=== PATIENT | female | born 2000 | race Caucasian/White ===

== ENCOUNTER 2023-04-17 16:47 | Emergency (ER) | payer MEDICAID, OTHER ==
[~2023-04-17] VITALS: Ht 152.4 cm; Wt 105.0 kg
[2023-04-17 17:00] VITALS: O2SAT 99
[2023-04-17] MEDS ORDERED: CEPH500C2 MT (17:58)
[2023-04-17] MEDS ORDERED: TOPUD MT (17:58)
[2023-04-17] MEDS ORDERED: ACETAMINOPHEN 325MG TABLET PO ONE (18:00)
[2023-04-17 18:54] VITALS: BP 135/85; PULSE 85; RESP 16; TEMP 98.7
== END 2023-04-17 18:55 | disposition home or self-care (01) ==
LOC: ER 16:47
DX: L60.0 Ingrowing nail (principal); I10 Essential (primary) hypertension; J45.909 Unspecified asthma, uncomplicated
CPT/HCPCS: 99283

== ENCOUNTER 2024-01-23 16:51 | Emergency (ER) | payer MEDICAID ==
[~2024-01-23] VITALS: Ht 165.1 cm; Wt 99.0 kg
[~2024-01-23 16:51] MED LIST: CEPH500C2 MT; TOPUD MT
[2024-01-23 17:00] VITALS: O2SAT 99
[2024-01-23 17:58] LABS: CLARITY URINE CLOUDY (CLEAR); COLOR URINE YELLOW (YELLOW); GLUCOSE URINE NEGATIVE (NEGATIVE); KETONES URINE NEGATIVE (NEGATIVE); LEUKOCYTE ESTERASE URINE TRACE (NEGATIVE); NITRITE URINE NEGATIVE (NEGATIVE); OCCULT BLOOD URINE NEGATIVE (NEGATIVE); PROTEIN URINE NEGATIVE (NEGATIVE); SPECIFIC GRAVITY URINE 1.025 (1.005-1.030)
[2024-01-23 18:03] LABS: UCG SCREEN NEGATIVE
[2024-01-23 18:22] LABS: BACTERIA URINE 1+; RBC URINE 0-2 /hpf (0-2); SQUAMOUS EPITHELIAL CELL URINE 2+ /lpf (RARE/1+)
[2024-01-23 19:10] LABS: BASOPHILS % 0.3 % (0.0-2.0); EOSINOPHILS % 3.5 % (0.0-5.0); HEMATOCRIT. 40.1 % (36.0-48.0); HEMOGLOBIN. 12.9 g/dL (12.0-16.0); LYMPHOCYTES % 30.9 % (20.0-50.0); MEAN CORPUSCULAR HEMOGLOBIN 26.4 pg (28.0-32.0); MEAN CORPUSCULAR HGB CONC 32.1 g/dL (31.0-37.0); MEAN CORPUSCULAR VOLUME 82.5 fL (81.0-99.0); MEAN PLATELET VOLUME 6.7 fl (7.4-10.4); NEUTROPHILS % 58.3 % (40.0-76.0); PLATELET 287 x1000/uL (130-400); RED BLOOD CELL COUNT 4.86 mill/uL (4.2-5.4); RED CELL DISTRIBUTION WIDTH 15.4 % (11.6-14.6); WHITE BLOOD COUNT 7.8 x1000/uL (4.5-11.0)
[2024-01-23 19:15] LABS: CHLORIDE 107 mEq/L (98-107); POTASSIUM 3.4 mEq/L (3.5-5.1); SODIUM 140 mEq/L (136-145)
[2024-01-23 19:16] LABS: CARBON DIOXIDE 27 mEq/L (21-32)
[2024-01-23 19:17] LABS: CALCIUM 9.2 mg/dL (8.7-10.4)
[2024-01-23 19:21] LABS: CREATININE 0.6 mg/dL (0.6-1.0); GLUCOSE 103 mg/dL (70-105)
[2024-01-23 19:22] LABS: UREA NITROGEN BLOOD 6 mg/dL (9-23)
[2024-01-23 19:23] LABS: ALANINE AMINOTRANSFERASE 35 IU/L (10-49); ALBUMIN 4.4 g/dL (3.2-4.8); ASPARTATE AMINOTRANSFERASE 28 IU/L (<34)
[2024-01-23 19:24] LABS: BILIRUBIN TOTAL 0.3 mg/dL (0.1-1.0); PROTEIN TOTAL 7.2 g/dL (6.0-8.3)
[2024-01-23] MEDS ORDERED: IBUP-2028 MT (20:38)
[2024-01-23] MEDS ORDERED: SULF1TAB48 MT (20:38)
[2024-01-23] MEDS: KETOROLAC 15MG/ML VIAL IM ONE (20:53)
[2024-01-23] MEDS: ACETAMINOPHEN 325MG TABLET PO ONE (20:53)
[2024-01-23 21:00] VITALS: BP 129/74; PULSE 79; RESP 20; TEMP 98.2
== END 2024-01-23 21:08 | disposition home or self-care (01) ==
LOC: ER 16:51
DX: R11.0 Nausea (principal); M54.50 Low back pain, unspecified; R10.30 Lower abdominal pain, unspecified; F41.9 Anxiety disorder, unspecified; J45.909 Unspecified asthma, uncomplicated; I10 Essential (primary) hypertension; R00.0 Tachycardia, unspecified
CPT/HCPCS: 99285; 76830; 76856; 80053; 81003; 81025; 83690; 85025; 87086; 36415; 96372; J1885

== ENCOUNTER 2024-01-26 14:04 | Emergency (ER) | payer MEDICAID ==
[~2024-01-26] VITALS: Ht 152.4 cm; Wt 100.0 kg
[~2024-01-26 14:04] MED LIST changes: +IBUP-2028 MT; +SULF1TAB48 MT
[2024-01-26 14:11] VITALS: TEMP 98.4; O2SAT 99
[2024-01-26 14:28] LABS: BASOPHILS % 0.4 % (0.0-2.0); EOSINOPHILS % 3.7 % (0.0-5.0); HEMATOCRIT. 40.4 % (36.0-48.0); HEMOGLOBIN. 13.2 g/dL (12.0-16.0); LYMPHOCYTES % 19.4 % (20.0-50.0); MEAN CORPUSCULAR HEMOGLOBIN 26.7 pg (28.0-32.0); MEAN CORPUSCULAR HGB CONC 32.6 g/dL (31.0-37.0); MEAN CORPUSCULAR VOLUME 82.1 fL (81.0-99.0); MEAN PLATELET VOLUME 6.5 fl (7.4-10.4); MONOCYTES % 6.1 % (2.0-8.0); NEUTROPHILS % 70.4 % (40.0-76.0); PLATELET 293 x1000/uL (130-400); RED BLOOD CELL COUNT 4.92 mill/uL (4.2-5.4); RED CELL DISTRIBUTION WIDTH 15.5 % (11.6-14.6); WHITE BLOOD COUNT 10.1 x1000/uL (4.5-11.0)
[2024-01-26 14:37] LABS: CARBON DIOXIDE 24 mEq/L (21-32); CHLORIDE 107 mEq/L (98-107); POTASSIUM 4.1 mEq/L (3.5-5.1); SODIUM 139 mEq/L (136-145)
[2024-01-26 14:38] LABS: CALCIUM 9.3 mg/dL (8.7-10.4)
[2024-01-26 14:43] LABS: CREATININE 0.6 mg/dL (0.6-1.0); GLUCOSE 106 mg/dL (70-105)
[2024-01-26 14:44] LABS: ALANINE AMINOTRANSFERASE 32 IU/L (10-49)
[2024-01-26 14:45] LABS: ALBUMIN 4.3 g/dL (3.2-4.8); ASPARTATE AMINOTRANSFERASE 29 IU/L (<34); BILIRUBIN TOTAL 0.3 mg/dL (0.1-1.0)
[2024-01-26 14:48] LABS: UREA NITROGEN BLOOD 8 mg/dL (9-23)
[2024-01-26 14:50] LABS: PROTEIN TOTAL 7.3 g/dL (6.0-8.3)
[2024-01-26 14:59] LABS: BILIRUBIN DIRECT < 0.1 mg/dL (<=3.0)
[2024-01-26 16:11] LABS: CLARITY URINE CLEAR (CLEAR); COLOR URINE YELLOW (YELLOW); GLUCOSE URINE NEGATIVE (NEGATIVE); KETONES URINE NEGATIVE (NEGATIVE); LEUKOCYTE ESTERASE URINE NEGATIVE (NEGATIVE); NITRITE URINE NEGATIVE (NEGATIVE); OCCULT BLOOD URINE NEGATIVE (NEGATIVE); PH URINE 6.5 (4.5-8.0); PROTEIN URINE NEGATIVE (NEGATIVE); SPECIFIC GRAVITY URINE 1.019 (1.005-1.030); UROBILINOGEN URINE 0.2 E.U./dL (0.2-1.0)
[2024-01-26 17:29] LABS: UCG KIT LOT# 819946; UCG SCREEN NEGATIVE
[2024-01-26 18:21] VITALS: BP 141/94; PULSE 99; RESP 16
[2024-01-26] MEDS: KETOROLAC 30MG/ML VIAL IM ONE (18:21)
== END 2024-01-26 19:13 | disposition home or self-care (01) ==
LOC: ER 14:28
DX: M54.9 Dorsalgia, unspecified (principal); N39.0 Urinary tract infection, site not specified; I10 Essential (primary) hypertension; J45.909 Unspecified asthma, uncomplicated; Z90.89 Acquired absence of other organs; Z98.890 Other specified postprocedural states
CPT/HCPCS: 99285; 74176; 80076; 80048; 81003; 81025; 85025; 86850; 86900; 86901; 87086; 36415; 96372; J1885

== ENCOUNTER 2024-02-24 13:52 | Emergency (ER) | payer MEDICAID ==
[~2024-02-24] VITALS: Ht 162.6 cm; Wt 105.0 kg
[2024-02-24 14:06] VITALS: TEMP 98.1; O2SAT 97
[2024-02-24 14:30] LABS: CLARITY URINE CLOUDY (CLEAR); COLOR URINE YELLOW (YELLOW); GLUCOSE URINE NEGATIVE (NEGATIVE); KETONES URINE NEGATIVE (NEGATIVE); LEUKOCYTE ESTERASE URINE 1+ (NEGATIVE); NITRITE URINE NEGATIVE (NEGATIVE); OCCULT BLOOD URINE NEGATIVE (NEGATIVE); PH URINE 5.5 (4.5-8.0); PROTEIN URINE NEGATIVE (NEGATIVE); SPECIFIC GRAVITY URINE 1.028 (1.005-1.030)
[2024-02-24 15:09] LABS: BACTERIA URINE 1+; RBC URINE 0-2 /hpf (0-2); SQUAMOUS EPITHELIAL CELL URINE 2+ /lpf (RARE/1+)
[2024-02-24] MEDS: CEFTRIAXONE SODIUM 1G VIAL IM NR (16:38)
[2024-02-24] MEDS: IBUPROFEN 600MG TABLET PO NR (16:38)
[2024-02-24] MEDS: LIDOCAINE HCL/PF 1% 10 MG/ML 5ML VIAL INFIL NR (16:38)
[2024-02-24] MEDS ORDERED: METR-167 MT (16:43)
[2024-02-24] MEDS ORDERED: AMOX1TAB16 MT (16:43)
[2024-02-24] MEDS ORDERED: NAPR-681 MT (16:43)
[2024-02-24 16:45] VITALS: BP 130/80; PULSE 68; RESP 15
== END 2024-02-24 16:49 | disposition home or self-care (01) ==
LOC: ER 13:52
DX: N39.0 Urinary tract infection, site not specified (principal); I10 Essential (primary) hypertension; J45.909 Unspecified asthma, uncomplicated; Z90.89 Acquired absence of other organs; Z98.890 Other specified postprocedural states
CPT/HCPCS: 99283; 81003; 81025; 87086; 87186; 87077; 96372; J0696; J3490

== ENCOUNTER 2024-03-18 17:16 | Emergency (ER) | payer MEDICAID ==
[~2024-03-18] VITALS: Ht 152.4 cm; Wt 104.0 kg
[~2024-03-18 17:16] MED LIST changes: +AMOX1TAB16 MT; +METR-167 MT; +NAPR-681 MT
[2024-03-18 17:54] VITALS: O2SAT 99
[2024-03-18 18:19] LABS: BASOPHILS % 0.4 % (0.0-2.0); EOSINOPHILS % 3.2 % (0.0-5.0); HEMATOCRIT. 40.2 % (36.0-48.0); LYMPHOCYTES % 26.4 % (20.0-50.0); MEAN CORPUSCULAR HGB CONC 32.3 g/dL (31.0-37.0); MEAN CORPUSCULAR VOLUME 83.9 fL (81.0-99.0); MEAN PLATELET VOLUME 6.6 fl (7.4-10.4); MONOCYTES % 6.3 % (2.0-8.0); NEUTROPHILS % 63.7 % (40.0-76.0); PLATELET 298 x1000/uL (130-400); RED BLOOD CELL COUNT 4.79 mill/uL (4.2-5.4); RED CELL DISTRIBUTION WIDTH 15.2 % (11.6-14.6); WHITE BLOOD COUNT 9.8 x1000/uL (4.5-11.0)
[2024-03-18 18:28] LABS: CHLORIDE 107 mEq/L (98-107); POTASSIUM 3.5 mEq/L (3.5-5.1); SODIUM 138 mEq/L (136-145)
[2024-03-18 18:29] LABS: CALCIUM 9.7 mg/dL (8.7-10.4); CARBON DIOXIDE 25 mEq/L (21-32)
[2024-03-18 18:34] LABS: CREATININE 0.7 mg/dL (0.6-1.0); GLUCOSE 83 mg/dL (70-105)
[2024-03-18 18:38] LABS: UREA NITROGEN BLOOD < 5 mg/dL (9-23)
[2024-03-18 22:59] LABS: CLARITY URINE CLOUDY (CLEAR); COLOR URINE YELLOW (YELLOW); PH URINE 5.5 (4.5-8.0); PROTEIN URINE NEGATIVE (NEGATIVE); SPECIFIC GRAVITY URINE >1.030 (1.005-1.030)
[2024-03-18 23:00] LABS: GLUCOSE URINE NEGATIVE (NEGATIVE); KETONES URINE NEGATIVE (NEGATIVE); LEUKOCYTE ESTERASE URINE NEGATIVE (NEGATIVE); NITRITE URINE NEGATIVE (NEGATIVE); OCCULT BLOOD URINE NEGATIVE (NEGATIVE); UROBILINOGEN URINE 0.2 E.U./dL (0.2-1.0)
[2024-03-18] MEDS: FAMOTIDINE 20MG TABLET PO ONE (23:40)
[2024-03-18] MEDS: ONDANSETRON HCL 4MG TABLET PO ONE (23:40)
[2024-03-18 23:43] LABS: BACTERIA URINE 4+; RBC URINE 0-2 /hpf (0-2); SQUAMOUS EPITHELIAL CELL URINE 1+ /lpf (RARE/1+); WBC URINE 0-2 /hpf (0-2)
[2024-03-18 23:44] LABS: AMORPHOUS SEDIMENT URINE 1+ /lpf
[2024-03-19] MEDS ORDERED: FAMO-135 MT (00:48)
[2024-03-19] MEDS ORDERED: ONDA4TAB50 MT (00:48)
[2024-03-19 01:08] VITALS: BP 160/97; PULSE 75; RESP 14; TEMP 36.78072; O2SAT 100
== END 2024-03-19 01:09 | disposition home or self-care (01) ==
LOC: ER 17:16
DX: R10.84 Generalized abdominal pain (principal); I10 Essential (primary) hypertension; Z79.899 Other long term (current) drug therapy
CPT/HCPCS: 99283; 80048; 81003; 81025; 83690; 85025; 36415; Q0162

== ENCOUNTER 2024-05-24 15:29 | Emergency (ER) | payer MEDICAID ==
[~2024-05-24] VITALS: Ht 172.7 cm; Wt 109.0 kg
[~2024-05-24 15:29] MED LIST changes: +FAMO-135 MT; +ONDA4TAB50 MT
[2024-05-24 15:36] VITALS: TEMP 98.6; O2SAT 98
[2024-05-24 17:42] LABS: CLARITY URINE CLEAR (CLEAR); COLOR URINE YELLOW (YELLOW); GLUCOSE URINE NEGATIVE (NEGATIVE); KETONES URINE NEGATIVE (NEGATIVE); LEUKOCYTE ESTERASE URINE 1+ (NEGATIVE); NITRITE URINE NEGATIVE (NEGATIVE); OCCULT BLOOD URINE NEGATIVE (NEGATIVE); PH URINE 7.5 (4.5-8.0); PROTEIN URINE NEGATIVE (NEGATIVE); SPECIFIC GRAVITY URINE 1.019 (1.005-1.030); UROBILINOGEN URINE 0.2 E.U./dL (0.2-1.0)
[2024-05-24 18:08] LABS: BACTERIA URINE NONE SEEN; RBC URINE NONE SEEN /hpf (0-2); SQUAMOUS EPITHELIAL CELL URINE RARE /lpf (RARE/1+)
[2024-05-24 20:09] LABS: BASOPHILS % 0.2 % (0.0-2.0); EOSINOPHILS % 3.4 % (0.0-5.0); HEMATOCRIT. 39.9 % (36.0-48.0); HEMOGLOBIN. 12.4 g/dL (12.0-16.0); LYMPHOCYTES % 26.2 % (20.0-50.0); MEAN CORPUSCULAR HGB CONC 31.2 g/dL (31.0-37.0); MEAN CORPUSCULAR VOLUME 83.5 fL (81.0-99.0); MEAN PLATELET VOLUME 6.7 fl (7.4-10.4); MONOCYTES % 4.1 % (2.0-8.0); NEUTROPHILS % 66.1 % (40.0-76.0); PLATELET 307 x1000/uL (130-400); RED BLOOD CELL COUNT 4.78 mill/uL (4.2-5.4); RED CELL DISTRIBUTION WIDTH 14.5 % (11.6-14.6); WHITE BLOOD COUNT 10.3 x1000/uL (4.5-11.0)
[2024-05-24 20:17] LABS: CHLORIDE 106 mEq/L (98-107); POTASSIUM 3.8 mEq/L (3.5-5.1); SODIUM 139 mEq/L (136-145)
[2024-05-24 20:18] LABS: CALCIUM 9.5 mg/dL (8.7-10.4); CARBON DIOXIDE 26 mEq/L (21-32)
[2024-05-24 20:23] LABS: CREATININE 0.7 mg/dL (0.6-1.0); GLUCOSE 89 mg/dL (70-105); UREA NITROGEN BLOOD 8 mg/dL (9-23)
[2024-05-24 20:25] LABS: ALANINE AMINOTRANSFERASE 20 IU/L (10-49); ALBUMIN 4.3 g/dL (3.2-4.8); ASPARTATE AMINOTRANSFERASE 20 IU/L (<34); BILIRUBIN DIRECT 0.1 mg/dL (<=3.0); BILIRUBIN TOTAL 0.4 mg/dL (0.1-1.0)
[2024-05-24 20:26] LABS: PROTEIN TOTAL 7.6 g/dL (6.0-8.3)
[2024-05-24] MEDS ORDERED: NITR-87 MT (20:36)
[2024-05-24 21:32] VITALS: BP 151/84; PULSE 64; RESP 18; O2SAT 97
== END 2024-05-24 21:34 | disposition home or self-care (01) ==
LOC: ER 15:29
DX: N39.0 Urinary tract infection, site not specified (principal); I10 Essential (primary) hypertension; J45.909 Unspecified asthma, uncomplicated; E66.9 Obesity, unspecified; Z90.89 Acquired absence of other organs; Z79.899 Other long term (current) drug therapy
CPT/HCPCS: 36415; 74176; 76830; 76856; 80048; 80076; 81003; 81025; 85025; 99284